=== PATIENT | male | born 1985 | race Caucasian/White ===

== ENCOUNTER 2020-11-21 15:55 | Emergency (ER) | payer BC ==
[~2020-11-21] VITALS: Ht 177.8 cm; Wt 86.2 kg
[2020-11-21] MEDS ORDERED: AMOXICILLIN 50500 MG PO (16:39)
[2020-11-21] MEDS ORDERED: NAPROSYN500 MG PO (16:39)
[2020-11-21 16:52] VITALS: BP 136/79
== END 2020-11-21 16:54 | disposition home or self-care (01) ==
LOC: M.ERS 15:55
DX: K08.89 Other specified disorders of teeth and supporting structures (principal)